=== PATIENT | male | born 1985 | race Caucasian/White ===

== ENCOUNTER 2022-01-18 12:05 | Emergency (ER) | payer MEDICAID, OTHER ==
[~2022-01-18] VITALS: Ht 172.7 cm; Wt 67.6 kg
[~2022-01-18 12:05] MED LIST: MARIJUANA
[2022-01-18 12:13] VITALS: BP 143/94
== END 2022-01-18 14:16 | disposition left against medical advice (07) ==
LOC: ER 12:05
DX: K08.89 Other specified disorders of teeth and supporting structures (principal); Z53.21 Procedure and treatment not carried out due to patient leaving prior to being seen by health care provider

== ENCOUNTER 2022-04-05 08:36 | Emergency (ER) | payer MEDICAID ==
[~2022-04-05] VITALS: Ht 172.7 cm; Wt 70.3 kg
[2022-04-05] MEDS ORDERED: KETOROLAC TROMETH 60MG/2ML VIAL IM ONE (11:45)
[2022-04-05] MEDS ORDERED: IBUP800T27 PO (11:50)
[2022-04-05 12:07] VITALS: BP 142/82
== END 2022-04-05 11:51 | disposition home or self-care (01) ==
LOC: ER 08:36
DX: S93.401A Sprain of unspecified ligament of right ankle, initial encounter (principal); W18.39XA Other fall on same level, initial encounter; Y93.51 Activity, roller skating (inline) and skateboarding; Y92.89 Other specified places as the place of occurrence of the external cause; Y99.8 Other external cause status
CPT/HCPCS: 73610; 73630; 96372; 99284; J1885

== ENCOUNTER 2024-02-02 06:20 | Emergency (ER) | payer OTHER ==
[~2024-02-02] VITALS: Ht 172.7 cm; Wt 65.9 kg
[~2024-02-02 06:20] MED LIST changes: +ALBUAER3 IN; +AUG875T PO; +IBUP-1456 PO
[2024-02-02 06:25] VITALS: BP 130/95; RESP 18; O2SAT 99
[2024-02-02 06:42] VITALS: PULSE 68
[2024-02-02] MEDS ORDERED: AZIT1POW PO (07:08)
== END 2024-02-02 07:10 | disposition home or self-care (01) ==
LOC: ER 06:20
DX: J20.9 Acute bronchitis, unspecified (principal); J45.909 Unspecified asthma, uncomplicated; F17.210 Nicotine dependence, cigarettes, uncomplicated; F12.10 Cannabis abuse, uncomplicated; R42 Dizziness and giddiness
CPT/HCPCS: 71046; 93005